=== PATIENT | female | born 1990 | race Hispanic/Latino ===

== ENCOUNTER 2019-10-27 16:44 | Emergency (ER) | payer OTHER ==
[~2019-10-27] VITALS: Ht 167.6 cm; Wt 103.3 kg
[2019-10-27] MEDS ORDERED: PREN29TA4 PO (16:52)
[2019-10-27 17:44] LABS: BASO % 0.2 % (0.0-1.0); EOS # 0.2 10^3/uL (0.0-0.5); EOS % 1.9 % (0.0-3.0); HEMATOCRIT 41.5 % (36.0-47.0); HEMOGLOBIN 13.7 g/dl (12.0-15.5); LYMPH # 2.8 10^3/uL (1.5-5.0); LYMPH % 21.6 % (24.0-44.0); MEAN CORPUSCULAR HEMOGLOBIN 27.9 pg (27.0-33.0); MEAN CORPUSCULAR VOLUME 84.5 fl (80.0-96.0); MONO # 0.9 10^3/uL (0.0-0.8); MONO % 7.1 % (0.0-5.0); NEUTROPHILS # 8.8 10^3/uL (1.5-8.5); NEUTROPHILS % 68.7 % (36.0-66.0); PLATELET COUNT, AUTOMATED 338 10^3/uL (150-450); RED BLOOD COUNT 4.91 10^6/uL (4.00-5.40); WHITE BLOOD COUNT 12.8 10^3/uL (4.0-10.0)
[2019-10-27 18:17] LABS: BLOOD UREA NITROGEN 8 MG/DL (7-18); CALCIUM LEVEL 9.7 MG/DL (8.5-10.1); CARBON DIOXIDE LEVEL 20 MEQ/L (21-32); CHLORIDE LEVEL 110 MEQ/L (98-107); CREATININE FOR GFR 0.52 MG/DL (0.55-1.30); GLOMERULAR FILTRATION RATE > 60.0 (>60); GLUCOSE, FASTING 82 MG/DL (70-100); HCG, SERUM QUANTITATIVE 20439 MIU/ML; POTASSIUM SERUM 4.1 MEQ/L (3.5-5.1); SODIUM LEVEL 140 MEQ/L (136-145)
--- NOTE | 2019-10-27 19:02 | REPVR ---
PROCEDURE INFORMATION: Exam: US After First Trimester, Transabdominal Exam date and time: 10/27/2019 6:18 PM Age: 28 years old Clinical indication: Lmp or gestational age (in weeks): 19; Antepartum complications; Bleeding; ; Additional info: Vaginal bleeding, 19wks preg. PT states spotting off and on since yesterday morning TECHNIQUE: Imaging protocol: Real-time transabdominal obstetrical ultrasound of the maternal pelvis and a second or third trimester with image documentation. COMPARISON: No relevant prior studies available. FINDINGS: Gestation: Single intrauterine gestation. Heart rate: heart rate 149 bpm. Presentation: Breech Placenta: Lower anterior placenta without evidence of placenta previa. Amniotic fluid: Amniotic fluid is normal for gestational age. ANATOMY: Cerebellum: Not visualized Cisterna magna: Not visualized Cerebral ventricles: Unremarkable Upper lip and nose: Not visualized Heart four-chamber view, heart size and position: Not visualized Kidneys: Not visualized Stomach: Unremarkable Bladder: Unremarkable Umbilical cord vessel number: 3 Spine: Suboptimal Arms and legs: Suboptimal Gender: Not determined BIOMETRY: Estimated gestational age: Gestational age based on LMP of 06/17/2019 is 18 weeks 6 days corresponding to aggregate ultrasound measurements a clip in to 18 weeks 4 days. BRITTANEY based on LMP is 03/23/2020. Estimated due date: See "Estimated gestational age" finding. Estimated weight: Estimated weight 244 g (33 percentile). Biparietal diameter: BPD measures 4.3 cm Head circumference: Head circumference 15.9 cm Abdominal circumference: Abdominal circumference 13.1 cm Femur length: Femur length 2.7 cm. MATERNAL ANATOMY: Uterus: Unremarkable. Cervix: Cervical length measures 2.9 cm without evidence of funneling or bulging membranes. Right adnexa: Ovary is obscured by overlying bowel gas. Left adnexa: Ovary is obscured by overlying bowel gas. IMPRESSION: Mild cervical shortening in this small for dates 18 weeks 6 day gestational age fetus as described above. Follow-up ultrasound recommended to assess interval growth as clinically directed. Electronically signed by: Tk Cross On 10/27/2019 19:02:16 PM
[2019-10-27 19:41] VITALS: BP 118/55
--- NOTE | 2019-10-29 15:20 | ED PDOC ---
Post-Departure Follow-Up formal report of ob us faxed to [facility] for fu Charlene Martines MD Oct 29, 2019 15:20
== END 2019-10-27 19:47 | disposition home or self-care (01) ==
LOC: M ED 16:44
DX: O20.8 Other hemorrhage in early pregnancy (principal); Z3A.18 18 weeks gestation of pregnancy; Z79.899 Other long term (current) drug therapy

== ENCOUNTER 2020-03-10 13:58 | Inpatient (IN) | payer OTHER ==
[~2020-03-10] VITALS: Ht 167.6 cm; Wt 116.0 kg
[~2020-03-10 13:58] MED LIST: PREN29TA4 PO
[2020-03-10 14:21] VITALS: BP 151/93
[2020-03-10 14:26] VITALS: BP 154/84
[2020-03-10] MEDS ORDERED: LACTATED RINGER'S 1000 ML IV STA (14:33)
[2020-03-10 15:32] LABS: HEMOGLOBIN 12.1 g/dl (12.0-15.5); MEAN CORPUSCULAR HEMOGLOBIN 26.9 pg (27.0-33.0); MEAN CORPUSCULAR HGB CONC 31.8 g/dl (32.0-36.5); MEAN CORPUSCULAR VOLUME 84.6 fl (80.0-96.0); PLATELET COUNT, AUTOMATED 291 10^3/uL (150-450); RED BLOOD COUNT 4.49 10^6/uL (4.00-5.40); WHITE BLOOD COUNT 10.4 10^3/uL (4.0-10.0)
[2020-03-10] MEDS: LR 1,000 ML IV SCH ×2 (15:37→23:30)
[2020-03-10 16:02] VITALS: BP 99/54
--- NOTE | 2020-03-10 16:18 | HPEPDOC ---
Obstetrical History & Physical General Date of Admission Mar 10, 2020 at 13:58 History of Present Illness Presents to labor and delivery for direct admission for oligohydramnios, BPP 4/1 0 at 38+2 Chief Complaint: Induction of labor Information Provided By: Patient Age: 29 : 3 Term: 1 Pre-term: 0 Abortions: 1 Livin Care Care: Good Care Dating Final EDC: Mar 23, 2020 Final EDC for Daily Update: Mar 23, 2020 Final EDC by: LMP LMP: Jun 17, 2019 EGA at Admission: 38 (+2) Antepartum Course Diagnos(e)s excessive weight gain in , oligohydramnios Height (inches): 65 Pre- weight (lbs.): 220 Admission Weight (lbs.): 254 Change in Weight (lbs.): 34 Past Medical History Past Obstetrical History : Past Obstetrical History: Multigravida Date of Delivery: Mar 10, 2020 (04/2019) Gestation: 38 Type of Delivery: Spontaneous Vaginal Del. Sex of Infant: Male Weight of (grams): 0. (6#14) Complications: No SEO MANAGER History: Spontaneous Past Medical History Medical History obesity Surgical History: Oak teeth Family History Significant Family History: Cancer (sister-leukemia), Diabetes (mother, mgf) Social History Marital Status: Family situation: Spouse/partner home Psychosocial History: No pertinent psych hx * Smoker: non-smoker Alcohol: Denies Drugs: denies Abuse Violence Screening Have you been hit/kicked/slapp: No Have you been sexually assault: No Imunizations Tdap status: current Influenza Status: current Allergies Coded Allergies: No Known Allergies (Unverified , 10/27/19) Medications Scheduled Prenat 115/Iron Fum/Folic/Dss ( 19 Tablet) 1 Each Tablet, 1 TAB PO DAILY Physical Examination Physical Examination GENERAL: Alert and oriented times three. BREAST: . ABDOMEN: Gravid and non-tender to touch. FETUS: Is vertex (VTX) by ultrasound in clinic, fetus is vertex (VTX) by Steven. HEART RATE: Regular rate and rhythm. LUNGS: Clear to auscultation (CTA). EXTREMITIES: No edema. No clonus. Vital Signs/I&O Vital Signs Date Time Temp Pulse Resp B/P (MAP) Pulse Ox O2 Delivery O2 Flow Rate FiO2 03/10/20 14:26 100 18 154/84 (107) 03/10/20 14:10 97.4 Laboratory Data 24H LABS Laboratory Tests 2 03/10/20 14:06: Serology Scanned Report Hepatitis B Testing 03/10/20 15:15: CBC/BMP Pertinent Laboratoy Data Blood Type: A+ RBC Antibody Screen: Negative HIV: Negative Hepatitis B: Negative Rapid Plasma Reagin: Nonreactive Rubella: Immune Varicella: Nonreactive (vaccinate ) Chlamydia/Gonorrhea: Negative Group B Streptococcus: Negative Quad Screen Test: Negative Cystic Fibrosis: Negative Glucose Tolerance Test: 153 (normal 3hr gtt) Anatomy Ultrasound Placenta Location: Anterior Normal Anatomy: Yes Placenta Previa: No Vaginal Examination Dilation: 1cm Effacement: 30% Station: -3 Cervical Consistency: Soft Cervical Position: Posterior Presentation: Cephalic presentation Assessment Variability: Moderate Accelerations: Positive Decelerations: Variable Tocometer Contractions: Yes Frequency: irregular Multi-drug resistant Organism: No history of MDRO Assessment/Plan Assessment Lakeisha is a 29-year-old (G)3 para (P)1-0-1-1 at 38+2 weeks by 18-week ultrasound and LMP. Presents to Labor and Delivery (L&D) for IOL for oligohydramnios. Plan Admit and orient. Group Counselor and consent for IOL, delivery and blood products. Diet: reg x1, then clear liquids in labor. Group B Streptococcus (GBS) [negative]. Labs and intravenous (IV) per unit protocol. Counseled on Pitocin and induction of labor (IOL). Lactated Ringers (LR): Bolus 1000 mL, then at 125 mL/hr. Continuous efm x2, monitor for change in or maternal status. 80/80 cervical catheter, consider pitocin induction, evaluate for dilation as indicated Anticipate [normal spontaneous delivery ()]. C-S as appropriate. Labor and Delivery Counseling Pt consent for induction of labor, delivery, and blood products reviewed and con firmed with expressed understanding. TORI VARGAS CNM Mar 10, 2020 16:18
[2020-03-10 16:56] VITALS: BP 126/60
[2020-03-10 18:33] VITALS: BP 136/57
[2020-03-10] MEDS ORDERED: ACETAMINOPHEN 500 MG TAB PO ONE (22:45)
[2020-03-10] MEDS ORDERED: PROMETHAZINE INJ 25 MG/ML VIAL (J2550) IV ONE (22:45)
[2020-03-10] MEDS ORDERED: BUTORPHANOL 2 MG/ML INJ (J0595) IV ONE (22:45)
[2020-03-11] VITALS (42 sets, daily range): BP systolic 96–133; BP diastolic 50–79
--- NOTE | 2020-03-11 07:09 | IPNPDOC ---
Obstetrical Progress Note Date of Service Mar 11, 2020 Subjective Patient reports feeling crampy but notes the stadol and phenergan worked to allow her to rest overnight. Objective Vital Signs Date Time Temp Pulse Resp B/P (MAP) Pulse Ox O2 Delivery O2 Flow Rate FiO2 03/10/20 23:33 97.6 85 18 118/56 Room Air Assessment Heart Rate (FHR): 140 Variability: Moderate Accelerations: Positive Decelerations: None Heart Rate Tracing: Category I Tocometer Contractions: Yes Frequency: irregular Sterile Vaginal Examination Dilation: 6 cm Effacement (%): 80% Station: -3 Cervical Consistency: Soft Cervical Position: Posterior Postion/Presentation: Cephalic presentation (confirmed by TAUS) Assessment and Plan Status: Reassuring Group B Streptococcus: Negative Anticipate: Vaginal Delivery Additional Comments Cook catheter deflated (40 in vaginal bulb with 120 in uterine bulb). SVE 6/80/- 5 ( head significantly displaced out of the pelvis but confirmed cephalic by ultrasound). Plan to allow patient to shower and eat breakfast then will start pitocin protocol. Lakeisha may have epidural if desired. FHRT cat I. Patient desires to proceed, safe to continue. DOUG LOBATO DO Mar 11, 2020 07:09
[2020-03-11] MEDS ORDERED: OXYTOCIN DRIP 30 UNITS in IV 1 EA IV SCH (07:15)
[2020-03-11] MEDS: LR 1,000 ML IV SCH ×4 (08:25→23:43)
[2020-03-11] MEDS ORDERED: LR 1,000 ML IV ONE (15:30)
[2020-03-11] MEDS ORDERED: FENTANYL 2MCG/ML ROPIVACAINE 0.2% IN 0.9% NACL 100ML IVBAG As Ordered ONE (15:48)
[2020-03-11] MEDS ORDERED: REFRIGERATOR IV KEYS XX PRN (17:15)
[2020-03-11] MEDS ORDERED: FENTANYL/ROPIVACAINE/NACL BAG 100 ML EPIDURAL SCH (17:15)
[2020-03-11] MEDS ORDERED: ePHEDrine SULFATE 25 MG/5 ML(5MG/ML) SYRINGE IV PRN (17:15)
[2020-03-11] MEDS ORDERED: LACTATED RINGER'S 1000 ML IV PRN (17:15)
[2020-03-11] MEDS ORDERED: ONDANSETRON 4MG/2ML VIAL IV PRN (17:15)
[2020-03-11] MEDS ORDERED: EPIDURAL COMMENT XX SCH (17:15)
[2020-03-11] MEDS ORDERED: NALOXONE INJ 0.4MG/1ML VIAL (J2310 PER 1MG) IV PRN (17:15)
[2020-03-11] MEDS ORDERED: diphenhydrAMINE 50MG/ML VIAL (J1200) IV PRN (17:15)
[2020-03-11] MEDS ORDERED: EPIDURAL/PCA KEYS XX PRN (17:15)
--- NOTE | 2020-03-11 18:33 | IPNPDOC ---
Obstetrical Progress Note Date of Service Mar 11, 2020 Subjective io for oligohydramnios contractions painful at 18 munits category 1 strip Objective Vital Signs Date Time Temp Pulse Resp B/P (MAP) Pulse Ox O2 Delivery O2 Flow Rate FiO2 03/11/20 17:32 94 18 100/58 (72) 03/11/20 16:52 98.1 03/10/20 23:33 Room Air Assessment Heart Rate (FHR): 140 Variability: Moderate Accelerations: Present Decelerations: None Heart Rate Tracing: Category I Tocometer Contractions: Yes Frequency: regular, every 1-5 min. Duration: less than 60 seconds Strength: palpated as mild, resting tone palp/soft Sterile Vaginal Examination Dilation: 4 cm Effacement (%): 50% Station: -3 Cervical Consistency: Soft Cervical Position: Posterior Postion/Presentation: Cephalic presentation Assessment and Plan Age: 29 : 2 Term: 1 Livin EGA at Admission: 38.2 Status: Reassuring Group B Streptococcus: Negative Anticipate: Vaginal Delivery Additional Comments reviewed cervical exam after epidural external os 6 cm soft internal os 4 cm well applied soft posterior arom minimal fluid hold Pitocin at 18 munits Guy Cordova MD Mar 11, 2020 18:32
[2020-03-12] VITALS (16 sets, daily range): BP systolic 112–140; BP diastolic 53–82
[2020-03-12] MEDS ORDERED: BICITRA 30ML SOLN UDC PO ONE (04:30)
[2020-03-12] MEDS ORDERED: AZITHROMYCIN INJ 500 MG, VIAL MATE ADAPTER 1 EACH in D5W 250 ML IV ONE (04:30)
[2020-03-12] MEDS ORDERED: BUPIVACAINE HCL 0.25% 10ML VIAL SC ONE (04:30)
[2020-03-12] MEDS ORDERED: ACETAMINOPHEN 650 MG SUPP PR SCH (04:30)
[2020-03-12] MEDS ORDERED: ceFAZolin SOD 2 GM in IV 1 EA IV ONE (04:30)
[2020-03-12] MEDS ORDERED: MORPHINE PRES-FREE INJ 10 MG/10 ML VIAL (J2274) As Ordered ONE (04:40)
[2020-03-12] MEDS ORDERED: KETOROLAC 60MG 2ML VIAL As Ordered ONE (04:43)
[2020-03-12] MEDS ORDERED: OXYTOCIN 30 UNITS IN 0.9% NaCl 500ML IV BAG (J2590) As Ordered ONE ×2 (04:43→06:23)
[2020-03-12] MEDS ORDERED: ONDANSETRON 4MG/2ML VIAL As Ordered ONE (04:43)
[2020-03-12] MEDS ORDERED: dexameTHASONE 4 MG/ML 1ML VIAL (J1100 PER 1MG) As Ordered ONE (04:43)
[2020-03-12] MEDS ORDERED: PHENYLephrine HCL 500 MCG/5 ML (100MCG/ML) SYRINGE (J2370) As Ordered ONE (04:43)
[2020-03-12] MEDS ORDERED: OXYTOCIN INJ 10 UNITS/ML VIAL (J2590) As Ordered ONE ×2 (04:43→05:07)
[2020-03-12] MEDS ORDERED: ePHEDrine SULFATE 25 MG/5 ML(5MG/ML) SYRINGE As Ordered ONE (04:43)
--- NOTE | 2020-03-12 05:05 | IPNPDOC ---
Text Note Date of Service The patient was seen on 03/12/20. NOTE REVIEWED PROGRESS TO DATE AT 9 CM WITH THICK LIP ALL AROUND STOPPED PITOCIN AWAITED CATEGORY 1 STRIP STILL DENITA. RESTARTED PITOCIN 2 MUNITS , CATEGORY 2 STRIP MODERATE CONTRACTIONS AWAITED 3 HOURS NO PROGRESS ANTERIOR LIP GETTING MORE EDEMATOUS . DC PITOCIN OPTION OF CS AND PPL DISCUSSED . PATIENT EXPRESSED UNDERSTANDING SIGNED CONSENT VS,Fishbone, I+O VS, Fishbone, I+O Vital Signs Date Time Temp Pulse Resp B/P (MAP) Pulse Ox O2 Delivery O2 Flow Rate FiO2 03/11/20 23:20 97.6 18 03/11/20 23:03 95 113/70 (84) 03/10/20 23:33 Room Air I&O- Last 24 Hours up to 6 AM 03/12/20 06:00 Intake Total 4979 ml Output Total 1500 ml Balance 3479 ml Guy Cordova MD Mar 12, 2020 05:05
[2020-03-12 05:36] LABS: CORD GAS ABE V -5.9; CORD GAS HCO3 V 19.9 MEQ/L; CORD GAS O2 SAT V 85.3 %; CORD GAS PH V 7.314 UNITS; CORD GAS SBC V 19.4 MEQ/L; CORD GAS TCO2 V 21.1 MEQ/L
[2020-03-12 05:37] LABS: CORD GAS ABE A -5.5; CORD GAS HCO3 A 22.9 MEQ/L; CORD GAS O2 SAT A 42.7 %; CORD GAS PCO2 A 56.1 mmHg; CORD GAS PH A 7.228 UNITS; CORD GAS PO2 A 20.7 mmHg; CORD GAS SBC A 18.8 MEQ/L; CORD GAS TCO2 A 24.6 MEQ/L
[2020-03-12] MEDS ORDERED: METOCLOPRAMIDE INJ 10MG/2ML VIAL (J2765 PER 1) IV PRN (06:00)
[2020-03-12] MEDS ORDERED: NALOXONE INJ 0.4MG/1ML VIAL (J2310 PER 1MG) IV PRN ×2 (06:00)
[2020-03-12] MEDS ORDERED: NALBUPHINE HCL 10 MG/ML AMP (J2300) IV PRN (06:00)
[2020-03-12] MEDS ORDERED: ONDANSETRON 4MG/2ML VIAL IV PRN ×2 (06:00→06:30)
[2020-03-12] MEDS ORDERED: diphenhydrAMINE 50MG/ML VIAL (J1200) IV PRN ×2 (06:00→06:30)
[2020-03-12] MEDS ORDERED: ACETAMINOPHEN 1000MG 100ML IV BTL (OFIRMEV) (J0131 PER 10MG) As Ordered ONE (06:05)
[2020-03-12] MEDS ORDERED: LR 1,000 ML IV SCH (06:29)
[2020-03-12] MEDS ORDERED: oxyCODONE 5MG TAB PO PRN (06:30)
[2020-03-12] MEDS ORDERED: OXYTOCIN DRIP 30 UNITS in IV 1 EA IV ONE (06:30)
[2020-03-12] MEDS ORDERED: ANUSOL HC CREAM 30GM TOP PRN (06:30)
[2020-03-12] MEDS ORDERED: PERCOCET 5MG/325MG TAB PO PRN (06:30)
[2020-03-12] MEDS ORDERED: MEASLES,MUMPS,RUBELLA VACCINE INJ (MMR-II) (90707) SC SCH (06:30)
[2020-03-12] MEDS ORDERED: MOM 30ML SUSPENSION UDC PO PRN (06:30)
[2020-03-12] MEDS ORDERED: ACETAMINOPHEN TAB 650MG DOSE (2X325MG) PO PRN (06:30)
[2020-03-12] MEDS ORDERED: ACETAMINOPHEN 650 MG SUPP PR PRN (06:30)
[2020-03-12] MEDS ORDERED: RHOGAM 300 MCG (1500 IU) INJ (J2790) IM SCH (06:30)
[2020-03-12] MEDS ORDERED: fentaNYL 100 MCG/2 ML INJECTION (J3010) IV PRN (06:30)
[2020-03-12] MEDS ORDERED: DOCUSATE SODIUM 100 MG CAP PO PRN (06:30)
[2020-03-12] MEDS ORDERED: MEPERIDINE INJ 25 MG/ML VIAL (J2175) IV PRN (06:30)
[2020-03-12] MEDS ORDERED: METHYLERGONOVINE MALEATE 0.2 MG TAB PO PRN (06:30)
[2020-03-12] MEDS ORDERED: HYDROMORPHONE HCL 0.5 MG/ 0.5 ML SYRINGE (J1170 PER 1) IV PRN (06:30)
--- NOTE | 2020-03-12 08:21 | IPNPDOC ---
Text Note Date of Service The patient was seen on 03/12/20. NOTE REVIEWED CS RISK BENEFITS IE HEMORRHAGE INFECTION PERFORATION REOPERATION REMOTE BLOOD TRANSFUSION REMOTE HYSTERECTOMY FOR LIFE THREATENING BLEEDING LACERATION AT DELIVERY, ADMISSION FOR REASONS TO NICU EXPRESSED UNDERSTANDING SIGNED CONSENT AWAITING ANESTHESIA , NEONATOLOGY INFORMED VS,Fishbone, I+O VS, Fishbone, I+O Vital Signs Date Time Temp Pulse Resp B/P (MAP) Pulse Ox O2 Delivery O2 Flow Rate FiO2 03/12/20 07:50 98.6 83 17 131/70 (90) 96 Room Air I&O- Last 24 Hours up to 6 AM 03/12/20 06:00 Intake Total 4979 ml Output Total 1800 ml Balance 3179 ml Guy Cordova MD Mar 12, 2020 08:21
[2020-03-12] MEDS: PRENATAL VITAMINS CHEWABLE TABLET PO SCH (09:00)
[2020-03-12] MEDS: KETOROLAC 30 MG/ML 1ML VIAL IV SCH ×3 (11:19→23:08)
[2020-03-13 02:00] VITALS: BP 105/60
[2020-03-13 06:00] VITALS: BP 109/53
[2020-03-13] MEDS: IBUPROFEN 800 MG TAB PO SCH ×3 (06:18→22:40)
[2020-03-13] MEDS: PRENATAL VITAMINS CHEWABLE TABLET PO SCH (07:36)
[2020-03-13 08:00] LABS: HEMOGLOBIN 9.9 g/dl (12.0-15.5); MEAN CORPUSCULAR HEMOGLOBIN 26.2 pg (27.0-33.0); MEAN CORPUSCULAR VOLUME 87.3 fl (80.0-96.0); PLATELET COUNT, AUTOMATED 245 10^3/uL (150-450); RED BLOOD COUNT 3.78 10^6/uL (4.00-5.40); WHITE BLOOD COUNT 12.6 10^3/uL (4.0-10.0)
[2020-03-13] MEDS: ACETAMINOPHEN 500 MG TAB PO PRN ×2 (08:35→17:15)
[2020-03-13 09:04] VITALS: BP 102/62
--- NOTE | 2020-03-13 10:24 | IPNPDOC ---
Progress Note Date of Service: Mar 13, 2020 Day#: 1 Progress Note SUBJECT: 29yo doing well day #1 s/p PLTCS for arrest of dilation with LGA infant. She has been ambulating, voiding spontaneously without issue and tolerating regular diet. Reports lochia is decreasing. Patient is ambulating well. She is formula-feeding. Reports pain is controlled with pain medication. OBJECTIVE: VITAL SIGNS: Within normal limits, afebrile. Alert and oriented times three. Abdomen: Fundus firm at U-2. Soft, NTTP. Incision: dressing in place c/d/i ASSESSMENT: 35yo doing well day #1 s/p PLTCS for arrest of dilation. Vitals within normal limits, afebrile, hemodynamically stable with no evidence of infection. PLAN: 1. Discharge to home tomorrow. 2. Continue current pain mgmt but will transition toradol to motrin. 3. Encourage ambulation OOB as tolerated 4. Encourage regular diet as tolerated 5. Incision check visit in 2 weeks. 6. Discussed return precautions at length. VS, [facility]O Vital Signs Date Time Temp Pulse Resp B/P (MAP) Pulse Ox O2 Delivery O2 Flow Rate FiO2 03/13/20 09:04 96.6 79 18 102/62 (75) 98 03/13/20 02:00 Room Air I&O- Last 24 Hours up to 6 AM 03/13/20 06:00 Intake Total 4308 ml Output Total 2580 ml Balance 1728 ml Laboratory Data 24H LABS Laboratory Tests 2 03/13/20 07:38: Nucleated Red Blood Cells % (auto) 0.0 CBC/BMP Laboratory Tests 03/13/20 07:38 DOUG LOBATO DO Mar 13, 2020 10:24
[2020-03-13 13:34] VITALS: BP 115/73
[2020-03-13 17:15] VITALS: BP 121/59
[2020-03-13 22:19] VITALS: BP 106/57
[2020-03-14] MEDS: ACETAMINOPHEN 500 MG TAB PO PRN ×2 (00:03→07:53)
[2020-03-14 02:16] VITALS: BP 93/50
--- NOTE | 2020-03-14 04:08 | IPNPDOC ---
Progress Note Date of Service: Mar 14, 2020 Day#: 2 Progress Note SUBJECT: 29yo doing well day #2 s/p PLTCS for arrest of dilation with LGA infant. She has been ambulating, voiding spontaneously without issue and tolerating regular diet. Reports lochia is decreasing. Patient is ambulating well. She is formula-feeding. Reports pain is controlled with pain medication. OBJECTIVE: VITAL SIGNS: Within normal limits, afebrile. Alert and oriented times three. Abdomen: Fundus firm at U-2. Soft, NTTP. Incision: dressing in place c/d/i ASSESSMENT: 35yo doing well day #2 s/p PLTCS for arrest of dilation. Vitals within normal limits, afebrile, hemodynamically stable with no evidence of infection. PLAN: 1. Discharge to home today. 2. Continue current pain mgmt. 3. Encourage ambulation OOB as tolerated 4. Encourage regular diet as tolerated 5. Incision check visit in 2 weeks. 6. Discussed return precautions at length. VS, I&O, 24H, Ricoe Vital Signs/I&O Vital Signs Date Time Temp Pulse Resp B/P (MAP) Pulse Ox O2 Delivery O2 Flow Rate FiO2 03/14/20 02:16 97.6 73 16 93/50 (64) 03/13/20 17:15 Room Air 03/13/20 17:15 99 Laboratory Data 24H LABS Laboratory Tests 2 03/13/20 07:38: Nucleated Red Blood Cells % (auto) 0.0 CBC/BMP Laboratory Tests 03/13/20 07:38 DOUG LOBATO DO Mar 14, 2020 04:08
[2020-03-14 06:13] VITALS: BP 108/55
[2020-03-14] MEDS: IBUPROFEN 800 MG TAB PO SCH (06:42)
[2020-03-14] MEDS: PRENATAL VITAMINS CHEWABLE TABLET PO SCH (07:51)
--- NOTE | 2020-03-14 11:04 | RO ---
DATE OF OPERATION: 03/12/2020 PREOPERATIVE DIAGNOSES: 1. Failure to descend. 2. Failure to dilate. 3. Persistent occiput posterior. 4. Oligohydramnios. 5. Biophysical profile 07/28. POSTOPERATIVE DIAGNOSES: 1. Failure to descend. 2. Failure to dilate. 3. Persistent occiput posterior. 4. Oligohydramnios. 5. Biophysical profile 07/28. OPERATION PROPOSED: Primary section. OPERATION PERFORMED: Primary section. ANESTHESIA: Epidural plus local anesthetic for intraperitoneal procedure. ESTIMATED BLOOD LOSS: 300 mL. SURGEON: Dr. Cordova PSYCHOLOGIST DEVELOPMENTAL: Dr. Hitchcock for extraction, retraction, visualization, without which the procedure could not be completed. After adequate time-out, prepped and draped in the supine position. [place] catheter in the bladder draining clear urine. Acetaminophen suppository, 1300 mg per rectum. Sequentials in place. Antibiotics appropriately preoperatively. A Pfannenstiel incision was made two finger breadths above the symphysis pubis, passing through abdominal layers, securing hemostasis. Opening peritoneal cavity, we noticed the presenting part was high out of the pelvis. A low transverse incision was made into the uterus. Immediately we saw in the persistent occiput posterior (POP) position with the mouth of the baby up anteriorly. We delivered a live- female infant, weighing 3750 grams, scores of 9 and 9 at one and five minutes, respectively. Weight was 8 pound 4 ounces. Arterial pH was 7.22, base excess -5.5, venous pH 7.31, base excess - 5.9. The placenta was manually removed. It was quite calcified. Sweeping the intrauterine aspect, no evidence of membranes or tissue was left. The uterus contracted well down on Pitocin. The lower segment was oversewn in the usual fashion in two layers, imbricating the second layer and then reperitonealizing the bladder flap. With that done, isntrument and pad count was correct. Both tubes were visualized at the fimbriated end. The patient expressed requesting permanent sterilization. We had previously discussed risks and benefits and failure rate. Therefore, a Filshie clip was applied circumferentially on the mid section of the right tube. A stay suture proximal to the Filshie clip. Similar procedure was done on the left side with a proximal suture on the left side. With instrument and pad count correct, we reviewed the lower segment. Hemostasis was complete. Uterus contracted well down on Pitocin. The Mobius which was placed previously was removed, and again we looked the tubal areas to make sure there was good hemostasis, clips were still intact. The abdomen was closed with running stitch for the peritoneum, same for the fascia, interrupted for subcutaneous, Dexon to the skin, Marcaine 0.25% 10 mL for the incision site. The Mepore dressing was placed. Patient was then sent to recovery in good condition. ALYSIA
== END 2020-03-14 12:20 | disposition home or self-care (01) | DRG 785 ==
LOC: M LDI 13:58 → M OBS 03-12 07:39
PROVIDERS: ADMIT Registered Nurse; ATTEND Obstetrics & Gynecology
PROC: 0UL70ZZ Occlusion of Bilateral Fallopian Tubes, Open Approach (ICD-10-PCS; 2020-03-10)
PROC: 3E033VJ Introduction of Other Hormone into Peripheral Vein, Percutaneous Approach (ICD-10-PCS; 2020-03-10)
PROC: 10D00Z1 Extraction of Products of Conception, Low, Open Approach (ICD-10-PCS; principal; 2020-03-12 05:20)
DX: O41.03X0 Oligohydramnios, third trimester, not applicable or unspecified (principal); Z3A.38 38 weeks gestation of pregnancy; O62.0 Primary inadequate contractions; O36.63X0 Maternal care for excessive fetal growth, third trimester, not applicable or unspecified; O64.0XX0 Obstructed labor due to incomplete rotation of fetal head, not applicable or unspecified; Z37.0 Single live birth; Z30.2 Encounter for sterilization

== ENCOUNTER 2021-09-06 09:02 | Day surgery (SDC) | payer OTHER ==
[~2021-09-06] VITALS: Ht 162.6 cm; Wt 103.0 kg
[~2021-09-06 09:02] MED LIST changes: +NS 1,000 ML IV ONE
[2021-09-06] MEDS ORDERED: LIDOCAINE 2% 100MG/5ML SDV (FOR ANES.) As Ordered ONE (10:37)
[2021-09-06] MEDS ORDERED: propofoL 500 MG/50 ML VIAL As Ordered ONE (10:37)
[2021-09-06] MEDS ORDERED: fentaNYL 100 MCG/2 ML INJECTION As Ordered ONE (10:37)
[2021-09-06 11:50] VITALS: BP 131/60
== END 2021-09-06 12:30 | disposition home or self-care (01) ==
LOC: M OPP 09:02
PROVIDERS: ATTEND Internal Medicine Gastroenterology
DX: R19.4 Change in bowel habit (principal); K31.89 Other diseases of stomach and duodenum; R10.13 Epigastric pain; R14.0 Abdominal distension (gaseous); R11.0 Nausea; Z79.899 Other long term (current) drug therapy
CPT/HCPCS: 43239; 45380; 88305; J3010

== ENCOUNTER → 2022-12-06 | Outpatient (REF) | payer OTHER ==
[~2022-12-06] MED LIST changes: -NS 1,000 ML IV ONE
[2022-12-06 12:56] LABS: APPEARANCE, URINE CLEAR (CLEAR); BACTERIA, URINE AUTO NEGATIVE (NEGATIVE); BILIRUBIN, URINE AUTO NEGATIVE (NEGATIVE); BLOOD, URINE BLOOD 3+ (NEGATIVE); COLOR, URINE YELLOW (YELLOW); GLUCOSE, URINE (UA) AUTO NEGATIVE (NEGATIVE); KETONE, URINE AUTO NEGATIVE (NEGATIVE); LEUKOCYTE ESTERASE, URINE AUTO NEGATIVE (NEGATIVE); MUCUS, URINE SMALL (NEGATIVE); NITRITE, URINE AUTO NEGATIVE (NEGATIVE); PROTEIN, URINE AUTO NEGATIVE (NEGATIVE); RBC, URINE AUTO 181 /HPF (0-3); SPECIFIC GRAVITY URINE AUTO 1.015 (1.002-1.035); SQUAMOUS EPITHELIAL CELL UR AU 2 /HPF (0-6); UROBILINOGEN, URINE AUTO 0.2 mg/dL (0.0-2.0); WBC, URINE AUTO 2 /HPF (0-3)
[2022-12-06 13:17] LABS: TOTAL PROTEIN,RANDOM URINE 13.4 MG/DL (0.0-14.0)
[2022-12-06 13:22] LABS: CREATININE,RANDOM URINE 100.6 MG/DL
== END ==
LOC: M SFHCRHEU 08:49
PROVIDERS: ATTEND Internal Medicine Rheumatology
DX: R76.8 Other specified abnormal immunological findings in serum (principal); R53.83 Other fatigue; R11.0 Nausea
CPT/HCPCS: 81001; 82570; 84156; G0463

== ENCOUNTER → 2023-01-10 | Outpatient (REF) | payer OTHER ==
[2023-01-10 12:24] LABS: BASO % 0.6 % (0.0-1.0); EOS # 0.4 10^3/uL (0.0-0.5); EOS % 5.6 % (0.0-3.0); HEMATOCRIT 39.4 % (36.0-47.0); HEMOGLOBIN 12.4 g/dl (12.0-15.5); LYMPH # 1.7 10^3/uL (1.5-5.0); LYMPH % 25.5 % (24.0-44.0); MEAN CORPUSCULAR HEMOGLOBIN 26.4 pg (27.0-33.0); MEAN CORPUSCULAR HGB CONC 31.5 g/dl (32.0-36.5); MONO # 0.4 10^3/uL (0.0-0.8); MONO % 5.6 % (2.0-8.0); NEUTROPHILS # 4.1 10^3/uL (1.5-8.5); NEUTROPHILS % 62.4 % (36.0-66.0); PLATELET COUNT, AUTOMATED 342 10^3/uL (150-450); RED BLOOD COUNT 4.69 10^6/uL (4.00-5.40); WHITE BLOOD COUNT 6.6 10^3/uL (4.0-10.0)
[2023-01-10 12:33] LABS: ERYTHROCYTE SEDIMENTATION RATE 20 mm/hr (0-20)
[2023-01-10 12:56] LABS: C REACTIVE PROTEIN QUANTITATIV < 0.40 MG/DL (<1.0)
[2023-01-10 12:57] LABS: ALBUMIN 3.3 G/DL (3.2-5.2); ALKALINE PHOSPHATASE 98 U/L (46-116); ALT/SGPT 29 U/L (7.0-40); AST/SGOT 20 U/L (<34); BILIRUBIN,TOTAL 0.3 MG/DL (0.3-1.2); BLOOD UREA NITROGEN 11 MG/DL (9-23); CALCIUM LEVEL 9.4 MG/DL (8.5-10.1); CARBON DIOXIDE LEVEL 22 MMOL/L (20-31); CHLORIDE LEVEL 106 MMOL/L (98-107); CREATININE FOR GFR 0.48 MG/DL (0.55-1.30); GLOMERULAR FILTRATION RATE > 60.0 (>60); GLUCOSE, FASTING 161 MG/DL (60-100); POTASSIUM SERUM 3.7 MMOL/L (3.5-5.1); SODIUM LEVEL 138 MMOL/L (136-145)
[2023-01-10 15:27] LABS: COMPLEMENT C3 163.9 MG/DL (84.0-160.0)
[2023-01-10 15:28] LABS: COMPLEMENT C4 26.3 MG/DL (12-36)
== END ==
LOC: M SFHCRHEU 07:49
PROVIDERS: ATTEND Internal Medicine Rheumatology
DX: R76.8 Other specified abnormal immunological findings in serum (principal); R53.83 Other fatigue; R11.0 Nausea

== ENCOUNTER → 2023-03-05 | Outpatient (CLI) | payer OTHER | LOC: M PLAIMG 06:37 | PROVIDERS: ATTEND Internal Medicine Rheumatology | DX: R76.8 Other specified abnormal immunological findings in serum (principal); R53.83 Other fatigue; R11.0 Nausea; H04.123 Dry eye syndrome of bilateral lacrimal glands; M35.3 Polymyalgia rheumatica ==

== ENCOUNTER → 2023-03-06 | Outpatient (CLI) | payer SELFPAY | LOC: M PLAIMG 06:36 | PROVIDERS: ATTEND Internal Medicine Rheumatology | DX: R76.8 Other specified abnormal immunological findings in serum (principal); R53.83 Other fatigue; R11.0 Nausea; H04.123 Dry eye syndrome of bilateral lacrimal glands; M35.3 Polymyalgia rheumatica; S63.8X1A Sprain of other part of right wrist and hand, initial encounter; X58.XXXA Exposure to other specified factors, initial encounter; Y92.9 Unspecified place or not applicable; Y93.9 Activity, unspecified; Y99.9 Unspecified external cause status ==

== ENCOUNTER 2023-08-06 10:42 | Emergency (ER) | payer OTHER ==
[~2023-08-06] VITALS: Ht 167.6 cm; Wt 109.4 kg
[2023-08-06 11:46] LABS: BASO # 0.1 10^3/uL (0.0-0.2); BASO % 0.3 % (0.0-1.0); EOS # 0.1 10^3/uL (0.0-0.5); EOS % 0.8 % (0.0-3.0); HEMATOCRIT 40.5 % (36.0-47.0); LYMPH # 2.1 10^3/uL (1.5-5.0); LYMPH % 12.1 % (24.0-44.0); MEAN CORPUSCULAR HEMOGLOBIN 26.2 pg (27.0-33.0); MEAN CORPUSCULAR HGB CONC 32.1 g/dl (32.0-36.5); MEAN CORPUSCULAR VOLUME 81.5 fl (80.0-96.0); MONO # 1.7 10^3/uL (0.0-0.8); MONO % 9.5 % (2.0-8.0); NEUTROPHILS # 13.3 10^3/uL (1.5-8.5); NEUTROPHILS % 76.9 % (36.0-66.0); PLATELET COUNT, AUTOMATED 311 10^3/uL (150-450); RED BLOOD COUNT 4.97 10^6/uL (4.00-5.40); WHITE BLOOD COUNT 17.3 10^3/uL (4.0-10.0)
[2023-08-06 12:08] LABS: LIPASE 29 U/L (12-53)
[2023-08-06 12:10] LABS: ALBUMIN 3.3 G/DL (3.2-5.2); ALKALINE PHOSPHATASE 110 U/L (46-116); ALT/SGPT 33 U/L (7.0-40); AST/SGOT 19 U/L (<34); BILIRUBIN,DIRECT 0.2 MG/DL (<0.4); BILIRUBIN,TOTAL 0.4 MG/DL (0.3-1.2); BLOOD UREA NITROGEN 9 MG/DL (9-23); CALCIUM LEVEL 9.7 MG/DL (8.5-10.1); CARBON DIOXIDE LEVEL 25 MMOL/L (20-31); CHLORIDE LEVEL 105 MMOL/L (98-107); GLOMERULAR FILTRATION RATE > 60.0 (>60); GLUCOSE, FASTING 103 MG/DL (60-100); POTASSIUM SERUM 3.6 MMOL/L (3.5-5.1); SODIUM LEVEL 137 MMOL/L (136-145); TOTAL PROTEIN 7.3 G/DL (5.7-8.2)
[2023-08-06] MEDS: KETOROLAC 30 MG/ML 1ML VIAL IV ONE (12:32)
[2023-08-06] MEDS: ONDANSETRON 4MG 2ML VIAL IV ONE (12:32)
[2023-08-06] MEDS: NS 1,000 ML IV ONE (12:33)
[2023-08-06 12:34] LABS: HCG, SERUM QUALITATIVE NEGATIVE (NEGATIVE)
[2023-08-06] MEDS ORDERED: ISOVUE-370 76% 100ML VIAL As Ordered ONE (12:56)
[2023-08-06 13:15] LABS: CPK CREATINE PHOSPHOKINASE 56 U/L (34-145)
[2023-08-06 15:00] VITALS: BP 129/76; TEMP 97.4; O2SAT 98
== END 2023-08-06 15:05 | disposition home or self-care (01) ==
LOC: M ED 10:42
DX: D72.829 Elevated white blood cell count, unspecified (principal); E11.9 Type 2 diabetes mellitus without complications; E28.2 Polycystic ovarian syndrome
CPT/HCPCS: 74177; 80048; 80076; 81001; 82550; 83605; 83690; 84703; 85025; 87040; 87086; 96361; 96374; 96375; 99284; J1885; J2405; Q9967